=== PATIENT | male | born 1945 | race Caucasian/White ===

== ENCOUNTER → 2017-03-05 | Day surgery (SDC) | payer OTHER ==
[~2017-03-05] MED LIST: BUPIVACAINE/EPINEPHRINE 0.25% 50 ML VIAL ONE; BUPIVACAINE/EPINEPHRINE 0.5% 50 ML VIAL ONE; KETOROLAC TROMETHAMINE 30 MG/ML (IVP) VIAL IV PUSH ONE; LACTATED RINGER'S 1,000 ML BAG IV ONE; MIDAZOLAM HCL 2 MG/2 ML VIAL ONE; ONDANSETRON HCL 4 MG/2 ML VIAL IV PUSH ONE; PROPOFOL 200 MG/20 ML AMP IV ONE
--- NOTE | 2017-03-05 11:10 | TN ---
cc: JAMES FOREMAN M.D. DATE OF SURGERY: 03/05/2017 PREOPERATIVE DIAGNOSIS 1. Subcutaneous mass left neck 3 cm. 2. Subcutaneous mass base of skull 2 cm. POSTOPERATIVE DIAGNOSIS 1. Subcutaneous mass left neck 3 cm. 2. Subcutaneous mass base of skull 2 cm. 3. Probable sebaceous and pilar cyst. PROCEDURE PERFORMED 1. Wide local excision 3 cm left neck mass, subcutaneous mass. 2. Wide local excision 2 cm base of skull mass. SURGEON James Foreman MD ANESTHESIA General LMA, lateral. COMPLICATIONS None. INDICATIONS FOR PROCEDURE Mr. Szymanski is a pleasant 71-year-old gentleman who had an enlarging symptomatic subcutaneous skin mass in his left neck and the base of his skull. By physical exam these appeared to be sebaceous cysts or pilar cysts. They were enlarging and causing him pain. He requested they be excised. Risks and benefits of wide excision was discussed with him. He was agreeable. Because of the location on the scalp and neck I recommended this be done in the operating room for appropriate visualization and hemostasis. DETAILS OF PROCEDURE The patient was identified, brought to the operating room and placed supine on the operating table. After adequate general anesthesia was achieved with LMA, he was turned in the right lateral decubitus position with appropriate padding for hips, knees, shoulders and ankles. A time-out was taken. Attention was first directed to the 3 cm left neck mass. This was just on the superior lateral left neck near the base of the skull. 0.25% Marcaine was injected around the mass. An elliptical skin incision was made to excise the overlying skin directly over the mass. Subcutaneous tissue was dissected with sharp scalpel dissection. An encapsulated mass was identified and carefully dissected free without disturbing the capsule. Mass was excised in toto. Bleeding points were controlled with electrocautery Bovie. Wound was then irrigated and closed in two layers using a 3-0 Vicryl and a 4-0 Monocryl. Sterile dressings were applied. Attention now was directed to the base of the skull mass. Again 0.25% Marcaine was injected around the mass. Elliptical skin incision was used to include the overlying skin. Subcutaneous tissue was dissected with sharp scalpel. Mass was excised in toto and sent to pathology for analysis. The wound was irrigated with normal saline solution. An arterial bleeder was identified and it was controlled with a suture ligation using a 3-0 Vicryl suture, all bleeding stopped. The wound was copiously irrigated with normal saline solution again and injected with additional local anesthetic and then closed in single layer using 4-0 Monocryl. Sterile dressings were applied and the patient was awakened and brought to recovery in stable condition. MD AUDI Grant/VIVIAN /10:22 AM /10:57 AM
== END | disposition home or self-care (01) ==
LOC: ESDC 07:25
PROVIDERS: ATTEND Surgery Trauma Surgery
DX: R22.1 Localized swelling, mass and lump, neck (principal); R22.0 Localized swelling, mass and lump, head; L72.0 Epidermal cyst; E11.9 Type 2 diabetes mellitus without complications; Z79.4 Long term (current) use of insulin
CPT/HCPCS: 00300; 11422; 11423; 12041; 82948; 88304; J1885; J2250; J2405; J3010; J7120; 88305; 88311